=== PATIENT | male | born 1950 | race Caucasian/White ===

== ENCOUNTER 2020-01-11 13:31 | Emergency (ER) | payer MEDICARE, BC, OTHER ==
--- NOTE | 2020-01-11 14:11 | EDM.PDOC ---
ED HPI GENERAL MEDICAL PROBLEM - General Chief Complaint: General Stated Complaint: DIZZY, WEAK, LUX Time Seen by Provider: 01/11/20 13:50 Source of Information: Reports: Patient History Limitations: Reports: No Limitations - History of Present Illness INITIAL COMMENTS - FREE TEXT/NARRATIVE: Pt c/o of dizziness, weakness and constant LUX since about 2AM. Nausea since this morning and unsteady gate. States he similar sx this past Thursday (4 days ago) lasted 3 hrs. resolved and he was OK until early this morning. States his speech is not quite right, seems a little slurry, same thing on Thursday. PM hx:htn and hyperlipedia (Lisinopril and Simvastatin). Pt states he is a regular alcohol user - drinks at least a 6 pk daily. Onset Date: 01/07/20 Onset Time: 18:00 Duration: Getting Worse Location: Reports: Head Quality: Reports: Pressure, Same as Previous Episode Severity: Moderate Improves with: Reports: None Worsens with: Reports: None Associated Symptoms: Reports: Headaches, Malaise, Nausea/Vomiting, Weakness. Denies: Shortness of Breath Headache Pain Score (Numeric/FACES): 8 - Related Data Allergies Allergy/AdvReac Type Severity Reaction Status Date / Time No Known Allergies Allergy Verified 01/11/20 13:37 Home Meds: Home Meds Simvastatin 20 mg PO DAILY 01/11/20 [History] lisinopriL [Lisinopril] 20 mg PO DAILY 01/11/20 [History] Past Medical History Cardiovascular History: Reports: High Cholesterol, Hypertension ED ROS GENERAL - Review of Systems Review Of Systems: See Below Constitutional: Reports: Malaise, Weakness, Other. Denies: Fever HEENT: Reports: No Symptoms (nausea, severe LUX, dry heaves, speech slurry, dizziness, unsteady gate) Respiratory: Reports: Cough. Denies: Pleuritic Chest Pain Cardiovascular: Reports: Lightheadedness. Denies: Chest Pain GI/Abdominal: Reports: Nausea, Vomiting. Denies: Abdominal Pain Musculoskeletal: Reports: No Symptoms Skin: Reports: No Symptoms Neurological: Reports: Dizziness, Headache, Difficulty Walking, Weakness, Change in Speech, Gait Disturbance. Denies: Numbness Psychiatric: Reports: No Symptoms ED EXAM, GENERAL - Physical Exam Exam: See Below Exam Limited By: No Limitations General Appearance: Alert, WD/WN, Moderate Distress Ears: Normal External Exam Nose: Normal Inspection, Normal Mucosa Throat/Mouth: Normal Inspection, Normal Lips, Normal Teeth Head: Atraumatic, Normocephalic. No: Facial Swelling Neck: Normal Inspection, Supple, Non-Tender, Full Range of Motion Respiratory/Chest: No Respiratory Distress, Lungs Clear, Normal Breath Sounds Cardiovascular: Normal Peripheral Pulses, Regular Rate, Rhythm, No Edema GI/Abdominal: Normal Bowel Sounds, Soft, Non-Tender Back Exam: Normal Inspection, Full Range of Motion Extremities: Normal Inspection, Normal Range of Motion Neurological: Alert, Oriented, CN II-XII Intact, Normal Cognition, Abnormal Gait. No: Memory Loss Remote Events, Sensory/Motor Deficit Psychiatric: Normal Affect, Normal Mood Skin Exam: Warm, Dry, Intact, Normal Color EKG INTERPRETATION EKG Date: 01/11/20 Time: 15:03 Rhythm: NSR Petal: Normal P-Wave: Present QRS: Normal ST-T: Normal QT: Normal Course - Vital Signs Last Recorded V/S: Last Vital Signs Temp 97.8 F 01/11/20 13:38 Pulse 62 01/11/20 14:12 Resp 18 01/11/20 14:12 BP 130/60 01/11/20 14:12 Pulse Ox 97 01/11/20 13:38 - Orders/Labs/Meds Orders: Active Orders 24 hr Category Date Time Status EKG Documentation Completion [RC] ASDIRECTED Care 01/11/20 14:12 Active EKG Documentation Completion [RC] ASDIRECTED Care 01/11/20 14:13 Active Vital Signs [RC] PER UNIT ROUTINE Care 01/11/20 14:12 Active DRUG SCREEN, URINE [URCHEM] Stat Lab 01/11/20 15:05 Ordered Sodium Chloride 0.9% [Normal Saline] 1,000 ml Med 01/11/20 14:15 Active IV ASDIRECTED ED Alcohol and Substance Abuse Reflex [OM.PC] Click to Oth 01/11/20 15:06 Ordered Edit EKG 12 Lead [EK] Urgent Ther 01/11/20 14:12 Ordered Medication Orders Sodium Chloride (Normal Saline) 1,000 mls @ 125 mls/hr IV ASDIRECTED [facility] Last Admin: 01/11/20 14:18 Dose: 125 mls/hr Documented by: MARIBEL Labs: Laboratory Tests 01/11/20 01/11/2020 Range/Units 13:55 14:12 14:12 WBC 8.0 (4.0-11.0) K/uL RBC 4.49 L (4.50-6.50) M/uL Hgb 14.9 (13.0-18.0) g/dL Hct 43.9 (40.0-54.0) % MCV 98 H (76-96) fL MCH 33.2 H (27.0-32.0) pg MCHC 33.9 (31.0-35.0) g/dL RDW 11.8 (11.0-16.0) % Plt Count 117 L (150-400) K/uL MPV 12.3 H (6.0-10.0) fL Neut % (Auto) 85.5 H (45.0-70.0) % Lymph % (Auto) 9.7 L (20.0-40.0) % Twiggs % (Auto) 4.6 (3.0-10.0) % Eos % (Auto) 0.1 L (1.0-5.0) % Baso % (Auto) 0.1 (0.0-0.5) % Neut # (Auto) 6.85 (2.00-7.50) K/uL Lymph # (Auto) 0.78 L (1.50-4.00) K/uL Twiggs # (Auto) 0.37 (0.20-0.80) K/uL Eos # (Auto) 0.01 L (0.04-0.40) K/uL Baso # (Auto) 0.01 L (0.02-0.10) K/uL Sodium 138 (136-145) mmol/L Potassium 4.2 (3.5-5.1) mmol/L Chloride 103 (98-107) mmol/L Carbon Dioxide 26.3 (21.0-32.0) mmol/L Anion Gap 12.9 (5.0-15.0) mmol/L BUN 21 (8-26) mg/dL Creatinine 0.84 (0.70-1.30) mg/dL Est Cr Clr Drug Dosing 75.41 mL/min Estimated GFR (MDRD) > 60 (>60) MLS/MIN BUN/Creatinine Ratio 25.0 (6-25) Glucose 145 H (74-100) mg/dL Calcium 8.8 (8.5-10.1) mg/dL Ionized Calcium Cancelled Magnesium 2.0 (1.8-2.4) mg/dL Total Bilirubin 0.4 (0.0-1.0) mg/dL AST 19 (15-37) U/L ALT 30 (12-78) U/L Alkaline Phosphatase 99 (46-116) U/L Troponin I < 0.017 (0.000-0.060) ng/mL Total Protein 7.4 (6.4-8.2) g/dL Albumin 4.0 (3.4-5.0) g/dL Globulin 3.4 (2.2-4.2) g/dL Albumin/Globulin Ratio 1.2 (0.8-2.0) Ethyl Alcohol (<3.0) mg/dL SARS CoV-2 RNA Rapid SAGE Negative 01/11/20 Range/Units 15:06 WBC (4.0-11.0) K/uL RBC (4.50-6.50) M/uL Hgb (13.0-18.0) g/dL Hct (40.0-54.0) % MCV (76-96) fL MCH (27.0-32.0) pg MCHC (31.0-35.0) g/dL RDW (11.0-16.0) % Plt Count (150-400) K/uL MPV (6.0-10.0) fL Neut % (Auto) (45.0-70.0) % Lymph % (Auto) (20.0-40.0) % Twiggs % (Auto) (3.0-10.0) % Eos % (Auto) (1.0-5.0) % Baso % (Auto) (0.0-0.5) % Neut # (Auto) (2.00-7.50) K/uL Lymph # (Auto) (1.50-4.00) K/uL Twiggs # (Auto) (0.20-0.80) K/uL Eos # (Auto) (0.04-0.40) K/uL Baso # (Auto) (0.02-0.10) K/uL Sodium (136-145) mmol/L Potassium (3.5-5.1) mmol/L Chloride (98-107) mmol/L Carbon Dioxide (21.0-32.0) mmol/L Anion Gap (5.0-15.0) mmol/L BUN (8-26) mg/dL Creatinine (0.70-1.30) mg/dL Est Cr Clr Drug Dosing mL/min Estimated GFR (MDRD) (>60) MLS/MIN BUN/Creatinine Ratio (6-25) Glucose (74-100) mg/dL Calcium (8.5-10.1) mg/dL Ionized Calcium Magnesium (1.8-2.4) mg/dL Total Bilirubin (0.0-1.0) mg/dL AST (15-37) U/L ALT (12-78) U/L Alkaline Phosphatase (46-116) U/L Troponin I (0.000-0.060) ng/mL Total Protein (6.4-8.2) g/dL Albumin (3.4-5.0) g/dL Globulin (2.2-4.2) g/dL Albumin/Globulin Ratio (0.8-2.0) Ethyl Alcohol < 3.0 (<3.0) mg/dL SARS CoV-2 RNA Rapid SAGE Meds: Medications Generic Name Dose Route Start Last Admin Trade Name Freq PRN Reason Stop Dose Admin Sodium Chloride 1,000 mls @ 125 mls/hr 01/11/20 14:15 01/11/20 14:18 Normal Saline IV 125 mls/hr ASDIRECTED YVONNE Administration Discontinued Medications Generic Name Dose Route Start Last Admin Trade Name Harman PRN Reason Stop Dose Admin Acetaminophen 1,000 mg 01/11/20 16:14 01/11/20 16:21 Tylenol Extra Strength PO 01/11/20 16:15 1,000 mg ONETIME ONE Administration Thiamine HCl 100 mg/ Sodium 11 mls @ 200 mls/hr 01/11/20 15:06 Chloride IV 01/11/20 15:09 ONETIME ONE Morphine Sulfate 2 mg 01/11/20 15:13 01/11/20 15:16 Morphine IVPUSH 01/11/20 15:14 2 mg ONETIME ONE Administration Morphine Sulfate Confirm 01/11/20 15:24 01/11/20 15:32 Morphine Administered 01/11/20 15:25 Not Given Dose 2 mg .ROUTE .STK-MED ONE Ondansetron HCl Confirm 01/11/20 14:21 01/11/20 14:17 Zofran Administered 01/11/20 14:22 4 mg Dose Administration 4 mg .ROUTE .STK-MED ONE - Re-Assessments/Exams Free Text/Narrative Re-Assessment/Exam: 01/11/20 14:22 Complete lab panel ordered CXR CT Brain COVID test - negative IVF Zofran and Morphine given Free Text/Narrative Re-Assessment/Exam: 01/11/20 15:27 CXR had a granulomatous spot on xray which pt was aware of and has been evaluated and is not a cancer. CT of head read as: there is a subtle area of decreased attenuation in the left occipital region suspicious for an acute infarct. I will be calling [facility] hospitalist for transfer. Free Text/Narrative Re-Assessment/Exam: 01/11/20 16:25 CT -acute infarct - occipital [facility] neurologist called Dr Mcarthur who accepted patient for CVA Spoke with Dr Espino (hospitalist) who arranged for admission Pt transported by Air to [facility] Departure - Departure Time of Disposition: 17:00 Disposition: DC/Tfer to [facility] Condition: Critical Clinical Impression: Stroke, CVA, Cerebrovascular accident - Discharge Information *PRESCRIPTION DRUG MONITORING PROGRAM REVIEWED*: Not Applicable *COPY OF PRESCRIPTION DRUG MONITORING REPORT IN PATIENT RAZA: Not Applicable Forms: Interfacility Transfer [facility] Sepsis Event Note (ED) - Evaluation Sepsis Screening Result: No Definite Risk - Focused Exam Vital Signs: Vital Signs Temp Pulse Resp BP Pulse Ox 01/11/20 14:12 62 18 130/60 01/11/20 13:38 97.8 F 60 18 161/62 H 97 - My Orders Last 24 Hours: My Active Orders 01/11/20 14:12 EKG Documentation Completion [RC] ASDIRECTED Vital Signs [RC] PER UNIT ROUTINE EKG 12 Lead [EK] Urgent 01/11/20 14:13 EKG Documentation Completion [RC] ASDIRECTED 01/11/20 14:15 Sodium Chloride 0.9% [Normal Saline] 1,000 ml IV ASDIRECTED 01/11/20 15:05 DRUG SCREEN, URINE [URCHEM] Stat 01/11/20 15:06 ED Alcohol and Substance Abuse Reflex [OM.PC] Click to Edit - Assessment/Plan Last 24 Hours: My Active Orders 01/11/20 14:12 EKG Documentation Completion [RC] ASDIRECTED Vital Signs [RC] PER UNIT ROUTINE EKG 12 Lead [EK] Urgent 01/11/20 14:13 EKG Documentation Completion [RC] ASDIRECTED 01/11/20 14:15 Sodium Chloride 0.9% [Normal Saline] 1,000 ml IV ASDIRECTED 01/11/20 15:05 DRUG SCREEN, URINE [URCHEM] Stat 01/11/20 15:06 ED Alcohol and Substance Abuse Reflex [OM.PC] Click to Edit
[2020-01-11] MEDS ORDERED: Sodium Chloride 0.9% 1,000 ML IV SCH (14:15)
[2020-01-11] MEDS ORDERED: Ondansetron 4 MG/2 ML SDV ONE (14:21)
[2020-01-11] MEDS ORDERED: Thiamine 100 MG in Sodium Chloride 0.9% 10 ML IV ONE (15:06)
--- NOTE | 2020-01-11 15:11 | CRLCT ---
DATE OF SERVICE: 01/11/2020 CLINICAL DATA: headache, dizziness Unenhanced brain CT: Multislice acquisition through the brain without IV contrast was performed. No priors. There are periventricular lucencies bilaterally consistent with small vessel ischemic change. There is a subtle area of decreased attenuation in the left occipital region suspicious for an acute infarct. There are fairly well defined areas of decreased attenuation in both cerebellar hemispheres consistent with subacute or chronic infarcts. No masses or mass effect. No intracranial hemorrhage. No osseous abnormalities. Dictated by: Sy Jorge MD 01/11/2020 2:58PM [facility]
[2020-01-11] MEDS ORDERED: Morphine 2 MG/ML SYRINGE IVPUSH ONE (15:13)
[2020-01-11] MEDS ORDERED: Morphine 2 MG/ML SYRINGE ONE (15:24)
--- NOTE | 2020-01-11 15:38 | CRLCR ---
DATE OF SERVICE: 01/11/2020 CLINICAL DATA: headache, dizziness, weakness PA and lateral chest x-ray: There are no priors. The patient has taken a poor inspiration. The heart size is normal. There is a mild eventration of the right hemidiaphragm and mild atelectatic changes in the right lung base. There is a rounded nodular density in the right mid lung lateral to the right hilum on the frontal view. This is probably just confluence of densities. I cannot exclude a pulmonary parenchymal nodule. Chest CT is recommended to further evaluate. The lungs are otherwise clear. No pneumothorax. No pleural effusions. Dictated by: Sy Jorge MD 01/11/2020 3:00PM [facility]
[2020-01-11] MEDS ORDERED: Acetaminophen 500 MG Tab PO ONE (16:14)
[2020-01-11] MEDS ORDERED: Acetaminophen 500 MG Tab ONE (16:18)
== END 2020-01-11 17:10 ==
LOC: LB.ED 13:31
DX: I63.9 Cerebral infarction, unspecified (principal); I10 Essential (primary) hypertension; E78.5 Hyperlipidemia, unspecified; Z79.899 Other long term (current) drug therapy; Z20.828 Contact with and (suspected) exposure to other viral communicable diseases
CPT/HCPCS: 36415; 70450; 71046; 80053; 80307; 83735; 84484; 85025; 93005; 96361; 96374; 96375; 99285; A9270; J2270; J2405; J7030; U0002; 99284